=== PATIENT | male | born 2000 | race African-American/Black ===

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

== ENCOUNTER 2022-06-25 19:01 | Inpatient (IN) ==
[2022-06-25] MEDS ORDERED: HYDROmorphone 1 MG/1 ML SYRINGE IV ONE ×2 (20:33→21:00)
[2022-06-25] MEDS ORDERED: Lactated Ringers 1000 ml BAG 1,000 ML IV ONE (20:33)
[2022-06-25] MEDS ORDERED: Ondansetron 4 mg VIAL 2 MG/ML 2 ml VIAL IV PRN (21:29)
[2022-06-25] MEDS ORDERED: Lactated Ringers 1000 ml BAG 1,000 ML IV SCH (22:00)
[2022-06-25] MEDS ORDERED: HYDROmorphone 1 MG/1 ML SYRINGE IV SLOW PU PRN (22:00)
[2022-06-25] MEDS: Acetaminophen IV 1 GM/100ML 1,000 MG/100 ML BAG IV PRN (22:19)
[2022-06-25] MEDS: HYDROmorphone 1 MG/1 ML SYRINGE IV SLOW PU PRN (23:28)
[2022-06-26] MEDS: HYDROmorphone 1 MG/1 ML SYRINGE IV SLOW PU PRN ×11 (01:22→22:54)
[2022-06-26] MEDS: Enoxaparin 40 MG/0.4 ML SYR SUBCUT SCH ×2 (01:51→20:59)
[2022-06-26 07:02] LABS: Hematocrit 31 % (42-52); Hemoglobin 10.9 g/dL (14.0-18.0); Mean Corpuscular HGB Conc 35 g/dL (31-36); Mean Corpuscular Hemoglobin 36 pg (27-31); Mean Corpuscular Volume 102 fL (80-94); Mean Platelet Volume 7.8 fL (7.4-10.4); Platelet Count 289 10^3/uL (150-450); Red Cell Distribution Width 20 % (10-15); White Blood Count 12.5 10^3/uL (3.5-10.8)
[2022-06-26] MEDS: Acetaminophen IV 1 GM/100ML 1,000 MG/100 ML BAG IV PRN (07:17)
[2022-06-26 08:19] LABS: C Reactive Protein 28.63 mg/L (<8.01); Calcium 8.8 mg/dL (8.6-10.3); Magnesium 1.7 mg/dL (1.9-2.7); eGFR CKD-EPI 132.7 (>60)
[2022-06-26 09:18] LABS: ABS Basophils 0.1 10^3/ul (0-0.2); ABS Eosinophils 0.3 10^3/ul (0-0.6); ABS Lymphocytes 3.6 10^3/ul (1.0-4.8); ABS Monocytes 1.6 10^3/ul (0-0.8); ABS Neutrophils 6.9 10^3/ul (1.5-7.7); ABS Nucleated RBC 0.4 10^3/ul; Eosinophil % 2.2 %; Lymphocyte % 29.2 %; Nucleated Red Blood Cells % 3.5
[2022-06-26] MEDS ORDERED: Magnesium Sulfate IV 3 GM in NS 0.9% 100 ml BAG 100 ML IVPB ONE (09:27)
[2022-06-26] MEDS ORDERED: HYDROmorphone 1 MG/1 ML SYRINGE IV SLOW PU PRN (09:28)
[2022-06-26 09:53] LABS: Corrected Retic Count 4.6 % (0.5-1.5); Hematocrit for Retic CNT 31 % (42-52); Immature Retic Fraction 0.67; RBC Retic Count 2.99 10^6/uL (4.18-5.48)
[2022-06-26] MEDS: HYDROXYUREA 300 MG PO SCH (10:17)
[2022-06-26] MEDS: D5W 1000 ml BAG 1,000 ML IV SCH ×2 (12:35→21:10)
[2022-06-26 16:13] LABS: Hematocrit 33 % (42-52); Hematocrit for Retic CNT 33 % (42-52); Hemoglobin 11.5 g/dL (14.0-18.0); RBC Retic Count 3.24 10^6/uL (4.18-5.48)
[2022-06-26 16:18] LABS: Corrected Retic Count 5.4 % (0.5-1.5); Immature Retic Fraction 0.67
[2022-06-27] MEDS: HYDROmorphone 1 MG/1 ML SYRINGE IV SLOW PU PRN ×8 (01:12→22:29)
[2022-06-27 06:19] LABS: Corrected Retic Count 5.5 % (0.5-1.5); Hematocrit 31 % (42-52); Hematocrit for Retic CNT 31 % (42-52); Hemoglobin 10.9 g/dL (14.0-18.0); Immature Retic Fraction 0.61; Mean Corpuscular HGB Conc 36 g/dL (31-36); Mean Corpuscular Hemoglobin 36 pg (27-31); Mean Corpuscular Volume 101 fL (80-94); Mean Platelet Volume 8.2 fL (7.4-10.4); Platelet Count 285 10^3/uL (150-450); RBC Retic Count 3.02 10^6/uL (4.18-5.48); Red Blood Count 3.02 10^6 /uL (4.18-5.48); Red Cell Distribution Width 20 % (10-15); White Blood Count 13.3 10^3/uL (3.5-10.8)
[2022-06-27 06:30] LABS: ABS Eosinophils 0.1 10^3/ul (0-0.6); ABS Monocytes 2.2 10^3/ul (0-0.8); ABS Neutrophils 7.9 10^3/ul (1.5-7.7); ABS Nucleated RBC 0.7 10^3/ul; Eosinophil % 0.5 %; Lymphocyte % 22.6 %
[2022-06-27 06:40] LABS: Calcium 8.9 mg/dL (8.6-10.3); Magnesium 1.9 mg/dL (1.9-2.7); Potassium 3.8 mmol/L (3.5-5.0); eGFR CKD-EPI 135.6 (>60)
[2022-06-27] MEDS: Magnesium Hydroxide LIQ 30 ML UDC PO SCH ×2 (10:18→21:24)
[2022-06-27] MEDS: HYDROXYUREA 300 MG PO SCH (10:20)
[2022-06-27] MEDS ORDERED: HYDROmorphone 1 MG/1 ML SYRINGE IV ONE (12:23)
[2022-06-27] MEDS: D5W 1000 ml BAG 1,000 ML IV SCH ×2 (12:57→21:17)
[2022-06-27] MEDS ORDERED: HYDROmorphone 1 MG/1 ML SYRINGE IV SLOW PU PRN (14:24)
[2022-06-27] MEDS: Senna TAB 8.6 mg TAB PO SCH (21:24)
[2022-06-27] MEDS: Enoxaparin 40 MG/0.4 ML SYR SUBCUT SCH (22:28)
[2022-06-28] MEDS: HYDROmorphone 1 MG/1 ML SYRINGE IV SLOW PU PRN ×11 (00:51→23:31)
[2022-06-28] MEDS: D5W 1000 ml BAG 1,000 ML IV SCH (03:06)
[2022-06-28 06:35] LABS: Hematocrit 31 % (42-52); Hemoglobin 10.9 g/dL (14.0-18.0); Mean Corpuscular HGB Conc 35 g/dL (31-36); Mean Corpuscular Hemoglobin 36 pg (27-31); Mean Corpuscular Volume 102 fL (80-94); Mean Platelet Volume 8.4 fL (7.4-10.4); Platelet Count 311 10^3/uL (150-450); Red Blood Count 3.06 10^6 /uL (4.18-5.48); Red Cell Distribution Width 19 % (10-15)
[2022-06-28 06:45] LABS: ABS Eosinophils 0.1 10^3/ul (0-0.6); ABS Lymphocytes 2.5 10^3/ul (1.0-4.8); ABS Monocytes 1.8 10^3/ul (0-0.8); ABS Neutrophils 5.4 10^3/ul (1.5-7.7); ABS Nucleated RBC 0.3 10^3/ul; Eosinophil % 1.3 %; Lymphocyte % 25.3 %; Nucleated Red Blood Cells % 3.2
[2022-06-28 06:53] LABS: Calcium 9.1 mg/dL (8.6-10.3); Potassium 4.7 mmol/L (3.5-5.0); eGFR CKD-EPI 135.6 (>60)
[2022-06-28] MEDS: Magnesium Hydroxide LIQ 30 ML UDC PO SCH ×2 (07:18→22:03)
[2022-06-28] MEDS: HYDROXYUREA 300 MG PO SCH (07:22)
[2022-06-28] MEDS ORDERED: HYDROmorphone 1 MG/1 ML SYRINGE IV SLOW PU PRN (11:16)
[2022-06-28] MEDS: Lactated Ringers 1000 ml BAG 1,000 ML IV SCH ×2 (12:57→21:12)
[2022-06-28 13:44] LABS: High Sensitivity Troponin 1 Hr 7 pg/mL (<20)
[2022-06-28] MEDS ORDERED: HYDROmorphone 1 MG/1 ML SYRINGE IV SLOW PU SCH ×2 (15:00→17:00)
[2022-06-28] MEDS: Senna TAB 8.6 mg TAB PO SCH (22:05)
[2022-06-28] MEDS: Enoxaparin 40 MG/0.4 ML SYR SUBCUT SCH (23:30)
[2022-06-29] MEDS: HYDROmorphone 1 MG/1 ML SYRINGE IV SLOW PU PRN ×3 (01:31→05:29)
[2022-06-29 06:35] LABS: Corrected Retic Count 5.4 % (0.5-1.5); Hematocrit 29 % (42-52); Hematocrit for Retic CNT 29 % (42-52); Hemoglobin 10.2 g/dL (14.0-18.0); Immature Retic Fraction 0.58; Mean Corpuscular HGB Conc 35 g/dL (31-36); Mean Corpuscular Hemoglobin 36 pg (27-31); Mean Corpuscular Volume 103 fL (80-94); Mean Platelet Volume 8.4 fL (7.4-10.4); Platelet Count 333 10^3/uL (150-450); RBC Retic Count 2.83 10^6/uL (4.18-5.48); Red Blood Count 2.83 10^6 /uL (4.18-5.48); Red Cell Distribution Width 18 % (10-15); White Blood Count 10.5 10^3/uL (3.5-10.8)
[2022-06-29 06:39] LABS: ABS Basophils 0.1 10^3/ul (0-0.2); ABS Eosinophils 0.3 10^3/ul (0-0.6); ABS Lymphocytes 3.1 10^3/ul (1.0-4.8); ABS Monocytes 1.6 10^3/ul (0-0.8); ABS Neutrophils 5.4 10^3/ul (1.5-7.7); ABS Nucleated RBC 0.1 10^3/ul; Lymphocyte % 29.4 %; Nucleated Red Blood Cells % 1.3
[2022-06-29 06:50] LABS: Calcium 9.1 mg/dL (8.6-10.3); Magnesium 2.3 mg/dL (1.9-2.7); Potassium 4.4 mmol/L (3.5-5.0); eGFR CKD-EPI 136.2 (>60)
[2022-06-29] MEDS: Lactated Ringers 1000 ml BAG 1,000 ML IV SCH (08:08)
[2022-06-29] MEDS: HYDROXYUREA 300 MG PO SCH (10:45)
[2022-06-29] MEDS ORDERED: Ketorolac 10 mg TAB (NF) PO PRN (13:38)
[2022-06-29] MEDS ORDERED: CMC:Ketorolac 10 mg TAB (NF) PO PRN (13:57)
[2022-06-29] MEDS: Magnesium Hydroxide LIQ 30 ML UDC PO SCH (20:03)
[2022-06-29] MEDS: Senna TAB 8.6 mg TAB PO SCH (20:04)
[2022-06-29 22:22] LABS: Direct Bilirubin 0.8 mg/dL (0.03-0.18); Indirect Bilirubin 2.3 mg/dL (0.3-1.0); Total Bilirubin 3.1 mg/dL (0.2-1.0)
[2022-06-29] MEDS: Enoxaparin 40 MG/0.4 ML SYR SUBCUT SCH (23:53)
[2022-06-30] MEDS: Acetaminophen IV 1 GM/100ML 1,000 MG/100 ML BAG IV PRN (06:29)
[2022-06-30 08:32] LABS: ABS Lymphocytes 1.5 10^3/ul (1.0-4.8); ABS Monocytes 1.3 10^3/ul (0-0.8); ABS Neutrophils 7.1 10^3/ul (1.5-7.7); ABS Nucleated RBC 0.1 10^3/ul; Eosinophil % 0.2 %; Hematocrit 31 % (42-52); Hemoglobin 10.5 g/dL (14.0-18.0); Lymphocyte % 15.4 %; Mean Corpuscular HGB Conc 34 g/dL (31-36); Mean Corpuscular Hemoglobin 35 pg (27-31); Mean Corpuscular Volume 102 fL (80-94); Mean Platelet Volume 8.1 fL (7.4-10.4); Platelet Count 405 10^3/uL (150-450); Red Blood Count 3.01 10^6 /uL (4.18-5.48); Red Cell Distribution Width 18 % (10-15)
[2022-06-30 09:11] LABS: Magnesium 2.6 mg/dL (1.9-2.7); Potassium 4.7 mmol/L (3.5-5.0); eGFR CKD-EPI 135.6 (>60)
[2022-06-30 09:16] LABS: Sickle Solubility, B Positive (Negative)
[2022-06-30] MEDS: Magnesium Hydroxide LIQ 30 ML UDC PO SCH (09:34)
[2022-06-30 09:48] LABS: Hb A2 2.4 % (2.0-3.3); Hb F 21.2 % (0.0-0.9); Variant 1 76.4 Hb S % (0.0)
[2022-06-30 11:05] VITALS: BP 123/66
== END 2022-06-30 13:40 | disposition home or self-care (01) | DRG 812 ==
LOC: EDHOLD 19:01 → ED 19:01 → SUATTDRO 21:29 → OBSVTOIN 21:29 → EDHOLD 06-26 11:36 → MED 06-26 12:29
PROVIDERS: ADMIT Student in an Organized Health Care Education/Training Program; ATTEND Internal Medicine